=== PATIENT | female | born 1935 | race Caucasian/White ===

== ENCOUNTER 2017-01-31 20:12 | Emergency (ER) | payer OTHER ==
[2017-01-31 21:18] LABS: HEMOGLOBIN 12.9 gm/dl (12.3-15.3); RED BLOOD COUNT 4.42 M/UL (4.00-5.10); WHITE BLOOD COUNT 7.2 K/UL (4.5-11.0)
[2017-01-31 21:46] LABS: BUN/CREATININE RATIO 23 (0-10)
== END 2017-01-31 23:50 | disposition home or self-care (01) ==
LOC: ER1 20:12
PROVIDERS: Physician Assistant
DX: S42.294A Other nondisplaced fracture of upper end of right humerus, initial encounter for closed fracture (principal); S80.212A Abrasion, left knee, initial encounter; S80.211A Abrasion, right knee, initial encounter; R91.8 Other nonspecific abnormal finding of lung field; J44.9 Chronic obstructive pulmonary disease, unspecified; Z87.891 Personal history of nicotine dependence; Z88.0 Allergy status to penicillin; Z88.2 Allergy status to sulfonamides; Z88.6 Allergy status to analgesic agent; Z91.041 Radiographic dye allergy status; W18.09XA Striking against other object with subsequent fall, initial encounter; Y93.01 Activity, walking, marching and hiking; Y92.009 Unspecified place in unspecified non-institutional (private) residence as the place of occurrence of the external cause
CPT/HCPCS: 36415; 71010; 72170; 73030; 73060; 73564; 80053; 84484; 85025; 96374; 96376; 99284; J2270

== ENCOUNTER 2017-02-12 09:44 | Emergency (ER) | payer OTHER ==
[2017-02-12 10:35] LABS: HEMOGLOBIN 11.2 gm/dl (12.3-15.3); RED BLOOD COUNT 3.88 M/UL (4.00-5.10); WHITE BLOOD COUNT 8.7 K/UL (4.5-11.0)
[2017-02-12 11:02] LABS: BUN/CREATININE RATIO 22 (0-10)
== END 2017-02-12 11:10 | disposition left against medical advice (07) ==
LOC: ER1 09:44
PROVIDERS: Emergency Medicine; Physician Assistant
DX: J44.1 Chronic obstructive pulmonary disease with (acute) exacerbation (principal); J18.9 Pneumonia, unspecified organism; Z87.891 Personal history of nicotine dependence; Z88.0 Allergy status to penicillin; Z88.2 Allergy status to sulfonamides
CPT/HCPCS: 36415; 71010; 80053; 82803; 83605; 84484; 85025; 93005; 99285